=== PATIENT | female | born 2000 | race Caucasian/White ===

== ENCOUNTER 2022-02-25 13:13 | Outpatient (CLI) | payer OTHER, SELFPAY | END 2022-02-25 13:14 | disposition home or self-care (01) | LOC: LONREF 13:15 | PROVIDERS: PCP Family Medicine; Visit Provider Family Medicine | DX: E03.9 Hypothyroidism, unspecified (principal); F41.9 Anxiety disorder, unspecified | CPT/HCPCS: 84443 ==